=== PATIENT | male | born 1990 | race Caucasian/White ===

== ENCOUNTER 2021-11-26 22:51 | Emergency (ER) | payer SELFPAY ==
[2021-11-27] MEDS ORDERED: HYDROcodone/Acetaminophen 5/325 mg Tablet ONE ×3 (00:49→06:36)
[2021-11-27] MEDS ORDERED: Lorazepam 1 MG TAB ONE (02:28)
[2021-11-27 02:37] LABS: SARS-CoV-2 NAA Rapid Test Not Detected (NotDetected)
[2021-11-27 03:16] LABS: ALT (SGPT) 71 U/L (8-55); AST (SGOT) 149 U/L (5-34); Albumin 4.3 g/dL (3.5-5.0); Alkaline Phosphatase 112 U/L (40-110); Anion Gap 19 mmol/L (10-20); BUN (Urea Nitrogen) 5 mg/dL (8.9-20.6); Bilirubin, Total 0.9 mg/dL (0.2-1.2); Calc. Creatinine Clearance 0 mL/min (70-130); Calcium 8.9 mg/dL (7.8-10.44); Carbon Dioxide 21 mmol/L (22-29); Chloride 99 mmol/L (98-107); Estimated GFR 118; Globulin 2.5 g/dL (2.4-3.5); Glucose 131 mg/dL (70-105); Potassium 3.7 mmol/L (3.5-5.1); Protein, Total 6.8 g/dL (6.0-8.3); Sodium 135 mmol/L (136-145)
[2021-11-27] MEDS ORDERED: Ketorolac Tromethamine 30 MG/ML VIAL ONE (03:33)
[2021-11-27 04:00] LABS: Platelet Count 235 10x3/uL (150-450)
[2021-11-27 04:02] LABS: #Basophils 0.1 10x3/uL (0.0-0.2); #Eosinphils 0.1 10x3/uL (0.0-0.5); #Monocytes 0.9 10x3/uL (0.0-1.1); #Neutrophils 12.2 10x3/uL (1.5-8.4); %Basophils 0.9 % (0.0-2.0); %Eosinophils 0.5 % (0.0-6.0); %Monocytes 6.2 % (0.0-10.0); %Neutrophils 80.6 % (40.0-75.0); Hemoglobin 14.9 g/dL (13.5-17.5); Mean Corpuscular HGB CONC 38.2 g/dL (32.0-36.0); Mean Corpuscular Hemoglobin 37.5 pg (27.0-33.0); Mean Corpuscular Volume 98.2 fl (81.2-95.1); Mean Platelet Volume 9.2 fl (7.4-10.4); RBC Distribution Width 12.3 % (11.5-14.5); Red Blood Cell (RBC) Count 3.97 10x6/uL (4.32-5.72); White Blood Cell (WBC) Count 15.1 10x3/uL (3.5-10.5)
[2021-11-27] MEDS ORDERED: Morphine 4 MG/ML VIAL ONE (07:38)
[2021-11-27] MEDS ORDERED: Lorazepam 2 MG/ML VIAL ONE (07:39)
[2021-11-27] MEDS ORDERED: Ondansetron PF 4 MG/2 ML Vial ONE (07:39)
== END 2021-11-27 10:10 | disposition short-term general hospital (02) ==
LOC: CSHERS 22:51
DX: S82.832A Other fracture of upper and lower end of left fibula, initial encounter for closed fracture (principal); S92.002A Unspecified fracture of left calcaneus, initial encounter for closed fracture; S92.102A Unspecified fracture of left talus, initial encounter for closed fracture; Z20.822 Contact with and (suspected) exposure to COVID-19; F17.210 Nicotine dependence, cigarettes, uncomplicated; W11.XXXA Fall on and from ladder, initial encounter
CPT/HCPCS: 28400; 28430; 36415; 80053; 85025; 96372; 96374; 96375; J1885; J2060; J2270; J2405; U0002

== ENCOUNTER 2021-12-04 14:46 | Emergency (ER) | payer SELFPAY ==
[2021-12-04 16:13] LABS: ALT (SGPT) 44 U/L (8-55); AST (SGOT) 67 U/L (5-34); Albumin 4.2 g/dL (3.5-5.0); Alkaline Phosphatase 198 U/L (40-110); Anion Gap 18 mmol/L (10-20); BUN (Urea Nitrogen) 6 mg/dL (8.9-20.6); Bilirubin, Total 1.5 mg/dL (0.2-1.2); Calc. Creatinine Clearance 0 mL/min (70-130); Calcium 9.7 mg/dL (7.8-10.44); Carbon Dioxide 22 mmol/L (22-29); Chloride 97 mmol/L (98-107); Estimated GFR 121; Glucose 159 mg/dL (70-105); Potassium 3.3 mmol/L (3.5-5.1); Protein, Total 7.2 g/dL (6.0-8.3); Sodium 134 mmol/L (136-145)
[2021-12-04 16:14] LABS: #Basophils 0.1 10x3/uL (0.0-0.2); #Eosinphils 0.2 10x3/uL (0.0-0.5); #Monocytes 0.8 10x3/uL (0.0-1.1); #Neutrophils 4.3 10x3/uL (1.5-8.4); %Basophils 1.7 % (0.0-2.0); %Eosinophils 2.5 % (0.0-6.0); %Lymphocytes 23.8 % (18.0-47.0); %Neutrophils 60.4 % (40.0-75.0); Hemoglobin 14.5 g/dL (13.5-17.5); Mean Corpuscular HGB CONC 37.9 g/dL (32.0-36.0); Mean Corpuscular Hemoglobin 37.8 pg (27.0-33.0); Mean Corpuscular Volume 99.7 fl (81.2-95.1); Mean Platelet Volume 8.8 fl (7.4-10.4); Platelet Count 331 10x3/uL (150-450); RBC Distribution Width 12.8 % (11.5-14.5); Red Blood Cell (RBC) Count 3.84 10x6/uL (4.32-5.72); White Blood Cell (WBC) Count 7.1 10x3/uL (3.5-10.5)
== END 2021-12-04 16:45 | disposition home or self-care (01) ==
LOC: CSHERS 14:46
DX: S92.002D Unspecified fracture of left calcaneus, subsequent encounter for fracture with routine healing (principal); R58 Hemorrhage, not elsewhere classified; F17.210 Nicotine dependence, cigarettes, uncomplicated; W19.XXXD Unspecified fall, subsequent encounter
CPT/HCPCS: 29515; 36415; 80053; 83605; 85025

== ENCOUNTER 2022-02-28 21:48 | Emergency (ER) | payer SELFPAY ==
[2022-02-28] MEDS ORDERED: Fluorescein Opthalmic Strip ONE (21:54)
[2022-02-28] MEDS ORDERED: Tetracaine 0.5% PF 4 ML BOT ONE (21:54)
== END 2022-02-28 22:23 | disposition home or self-care (01) ==
LOC: CSHERS 21:48
DX: H16 Keratitis (principal); F17.210 Nicotine dependence, cigarettes, uncomplicated
CPT/HCPCS: 99283

== ENCOUNTER 2022-03-12 07:44 | Emergency (ER) | payer SELFPAY ==
[2022-03-12] MEDS ORDERED: Ondansetron PF 4 MG/2 ML Vial ONE (08:25)
[2022-03-12] MEDS ORDERED: Lorazepam 2 MG/ML VIAL ONE (08:26)
[2022-03-12 08:38] LABS: ALT (SGPT) 83 U/L (8-55); AST (SGOT) 120 U/L (5-34); Acetaminophen Less than 10.0 mcg/mL (10.0-30.0); Albumin 4.9 g/dL (3.5-5.0); Alcohol 38 mg/dL (Less than 10); Alkaline Phosphatase 187 U/L (40-110); Anion Gap 27 mmol/L (10-20); BUN (Urea Nitrogen) 9 mg/dL (8.9-20.6); Bilirubin, Total 3.3 mg/dL (0.2-1.2); CK (CPK) 160 U/L (30-200); Calc. Creatinine Clearance 0 mL/min (70-130); Calcium 10.2 mg/dL (7.8-10.44); Carbon Dioxide 20 mmol/L (22-29); Chloride 96 mmol/L (98-107); Estimated GFR 101; Globulin 3.4 g/dL (2.4-3.5); Glucose 170 mg/dL (70-105); Potassium 3.8 mmol/L (3.5-5.1); Protein, Total 8.3 g/dL (6.0-8.3); Salicylate Less than 8.0 mg/dL (15.0-30.0); Sodium 139 mmol/L (136-145)
[2022-03-12] MEDS ORDERED: chlordiazePOXIDE HCl 25 MG CAP ONE (08:45)
[2022-03-12 09:04] LABS: Clarity Slightly Cloudy (Clear); Specific Gravity, Urine 1.025 (1.005-1.030)
[2022-03-12 09:12] LABS: Bilirubin Unable to Interpret (Negative); Blood, Urine Unable to Interpret (Negative); Glucose, Urine (Dipstick) Unable to Interpret mg/dL (Negative); Ketone, Urine Unable to Interpret mg/dL (Negative); Leukocyte Unable to Interpret (Negative); Nitrite Unable to Interpret (Negative); Protein, Urine (Dipstick) Unable to Interpret mg/dl (Neg-Trace); Urobilinogen UNABLE TO INTERPRET mg/dL (Less than 2)
[2022-03-12 09:14] LABS: Amphetamine Not Detected (NotDetected); Barbiturates Screen Not Detected (NotDetected); Benzodiazepine Screen Not Detected (NotDetected); Cocaine Metabolite Screen Not Detected (NotDetected); Methadone Not Detected (NotDetected); Methamphetamine Not Detected (NotDetected); Opiate Screen Not Detected (NotDetected); Oxycodone Screen Not Detected (NotDetected); Phencyclidine (PCP) Not Detected (NotDetected); THC/Cannabinoid Screen Not Detected (NotDetected); Tricyclic Screen Not Detected (NotDetected)
[2022-03-12 09:16] LABS: Bacteria/HPF Rare-Few HPF (None Seen); Mucous/LPF 2+ LPF (<2+); RBC/HPF 0-3 HPF (0-3); Squamous Epithelial 0-3 HPF (0-3); WBC/HPF 0-3 HPF (0-3)
[2022-03-12 09:35] LABS: Hemoglobin 16.2 g/dL (13.5-17.5); Mean Corpuscular HGB CONC 38.3 g/dL (32.0-36.0); Mean Corpuscular Hemoglobin 37.9 pg (27.0-33.0); Mean Corpuscular Volume 99.1 fl (81.2-95.1); Mean Platelet Volume 9.8 fl (7.4-10.4); Platelet Count 219 10x3/uL (150-450); RBC Distribution Width 13.3 % (11.5-14.5); Red Blood Cell (RBC) Count 4.27 10x6/uL (4.32-5.72); White Blood Cell (WBC) Count 8.8 10x3/uL (3.5-10.5)
[2022-03-12 09:58] LABS: MDiff Complete? YES
[2022-03-12 10:03] LABS: Lymphocytes 2 % (21-51); Monocytes 4 % (0-10); Neutrophil 90 % (42-75); Reactive Lymphocytes 4 % (0-10)
[2022-03-12 10:04] LABS: Platelet Morphology Comment Appears Adequate
[2022-03-12 10:06] LABS: Macrocytosis SLIGHT = 6-15 cells (100X) (0-5/hpf); Stomatocytes SLIGHT = 2-5 cells (100X) (0-1/hpf)
== END 2022-03-12 09:57 | disposition home or self-care (01) ==
LOC: CSHERS 07:44
DX: K29.20 Alcoholic gastritis without bleeding (principal); F10.239 Alcohol dependence with withdrawal, unspecified; F17.210 Nicotine dependence, cigarettes, uncomplicated
CPT/HCPCS: 36415; 80053; 80306; 80307; 81003; 81015; 82550; 83690; 85025; 87804; 93005; 96361; 96374; 96375; J2060; J2405